=== PATIENT | female | born 1970 | race Hispanic/Latino ===

== ENCOUNTER 2022-06-21 23:07 | Emergency (ER) | payer BC, SELFPAY ==
--- OUTSIDE RECORDS SUMMARY | 2022-06-21 23:12 | XMS REPORT | Continuity of Care Document ---
:1970 Author Organization [facility] t Address [address] [place] [place] [address] Care Team Providers Name Role Phone Marino SANCHEZJeanie Primary Care Physician EV DURÁN Attending Clinician Unavailable RADHA GAVIN Attending Clinician Unavailable Ev Durán MD Attending Clinician VINCENT WOODALL Attending Clinician Unavailable LAB90 Attending Clinician Unavailable AVERY WINTERS Attending Clinician Unavailable Dani JENKINS, Lubna Estrada Attending Clinician Unavailable MANSI MENDIOLA Attending Clinician Unavailable Po[facility] Attending Clinician Unavailable Mansi Mendiola MD Attending Clinician Mando Rothman PTA Attending Clinician Unavailable Kasia Crisostomo MD Attending Clinician KASIA CRISOSTOMO Attending Clinician Unavailable SHERITA RODAS Attending Clinician Unavailable ROLAND ARZOLA Attending Clinician Unavailable ROLAND ARZOLA Admitting Clinician Unavailable Payers Payer Name Policy Type Policy Number Effective Date Expiration Date Sean soto [facility] [id number] 2019 [place] (ERS-[employer] 00:00:00 CAPITATED) Problems Condition Condition Condition Status Onset Resolution Last Treating Co mments Source Name Details Category Date Date Treatment Clinician Date Chronic, Chronic, Disease Active 2020-10 Kelse y continuous continuous 2-17 Se ybold use of use of 00:00: opioids opioids 00 Primary Primary Disease Active [facility] osteoarthr osteoarthr 5-16 Barbara kes itis of itis of 00:00: Medical right knee right knee 00 Ce nter Status Status Disease Active [facility] post right post right 5-16 Barbara kes knee knee 00:00: Medical replacemen replacemen 00 Ce nter t t Anxiety Anxiety Disease Active Mary 5-07 Seybold 00:00: 00 Severe Severe Disease Active Mary obesity obesity 5-07 Seybold 00:00: 00 Prediabete Prediabete Disease Active Fay rogelrose s s 5-07 Seybold 00:00: 00 Elevated Elevated Disease Active Kelse y blood blood 5-07 Seybold pressure pressure 00:00: reading reading 00 Migraine Migraine Disease Active Kelse y without without 5-07 Seybold aura and aura and 00:00: without without 00 status status migrainosu migrainosu s, not s, not intractabl intractabl e e Migraine Migraine Disease Active Kelse y without without 5-07 Seybold status status 00:00: migrainosu migrainosu 00 s, not s, not intractabl intractabl e e Left knee Left knee Disease Active Juan sey pain pain 8-22 Seybold 00:00: 00 Left knee Left knee Disease Active Juan sey pain pain 8-22 Seybold 00:00: 00 Fibromyalg Fibromyalg Disease Active 2015-10 Fay cavazos ia ia 1-11 Seybold 00:00: 00 Left Left Disease Active Mary shoulder shoulder 9-21 Seybol d pain pain 00:00: 00 Right knee Right knee Disease Active Fay elsey pain pain 8-08 Seybold 00:00: 00 Right knee Right knee Disease Active Fay elsey pain pain 8-08 Seybold 00:00: 00 Polyarthra Polyarthra Disease Active Fay cavazos lgia lgia 8-08 Seybold 00:00: 00 Encounter Encounter Disease Active 2014-10 Juan sey for for 1-09 Seybold long-term long-term 00:00: (current) (current) 00 use of use of medication medication s s Encounter Encounter Disease Active Juan hernandezy for for - Seybold long-term long-term 00:00: (current) (current) 00 use of use of other other medication medication s s Chronic Chronic Disease Active Mary insomnia insomnia 01-26 Seybol d 00:00: 00 Headache(7 Headache(7 Disease Active Overview : aMry 84.0) 84.0) 10-28 Formattin Seybold 00:00: g of this 00 note might be different from the original. 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 ICD-10 Facet Facet Disease Active 2009-10 Mary arthropath arthropath 10-09 Se ybold y y 00:00: 00 Myalgia Myalgia Disease Active 2009-10 Overview: Slime ey and and 10-09 Formattin Seybold myositis, myositis, 00:00: g of this unspecifie unspecifie 00 note d d might be different from the original. ICD-10 Thoracic Thoracic Disease Active 2009-10 Kelse y or or 10-09 Seybold lumbosacra lumbosacra 00:00: l neuritis l neuritis 00 or or radiculiti radiculiti s, s, unspecifie unspecifie d d Degenerati Degenerati Disease Active 2009-10 Fay cavazos on of on of 10-09 Seybold lumbar or lumbar or 00:00: lumbosacra lumbosacra 00 l l interverte interverte bral disc bral disc Chronic Chronic Disease Active 2008-10 Mary intractabl intractabl 0 Se ybold e pain e pain 00:00: 00 right right Disease Active Mary Cervical Cervical 04-15 Seybol d Radiculopa Radiculopa 00:00: thy thy 00 Cervical Cervical Disease Active Kelse y Spondylosi Spondylosi 04-15 Se ybold s C5-6 s C5-6 00:00: 00 Right S1 Right S1 Disease Active Kelse y Lumbosacra Lumbosacra 04-15 Se ybold l l 00:00: Radiculopa Radiculopa 00 thy thy Herniated Herniated Disease Active Overview: Mary Lumbar Lumbar 04-15 Formattin Seybold Interverte Interverte 00:00: g of this bral Disc, bral Disc, 00 note multilevel multilevel might be different from the original. L4-5 and L5-S1 Right Right Disease Active Overview: Mary Kidney Kidney 04-15 Formattin Seybold Cyst Cyst 00:00: g of this 00 note might be different from the original. Replaced via IMO Update Acute Acute Disease Active Mary bronchitis bronchitis 3- Se ybold 00:00: 00 Acute Acute Disease Active Mary sinusitis sinusitis 3-03 Seyb old 00:00: 00 Acne Acne Disease Active Overview: Mary Roblerotin Seybold g of this note might be different from the original. past tx: clinda gel, sulfaceta mide 10% lotion BID, amoxicill in 500mg BID No known No known Disease Unive rs active active ity of problems problems [place] [facility] Allergies, Adverse Reactions, Alerts Allergy Allergy Status Severity Reaction(s) Onset Inactive Treating Comm ents Source Name Type Date Date Clinician Hydroxyc Propensi Active Itching Unive rs hloroqui ty to 5-10 ity of ne adverse 00:00: [place] reaction 00 Medical s Branch HYDROXYC DRUG Active ITCHING Univers HLOROQUI INGREDI 5-10 ity of NE 00:00: [place] 00 Medical Branch Duloxeti Propensi Active hallucina [facility] 5-[facility] adverse 00:00: Medical reaction 00 [place] s Pregabal Drug Active Nausea And 2019- [facility] Allergy [facility]omiting 5[facility]10 [facility] 00:[facility] Medical [facility] Center Hydroxyc Drug Active Itching [facility] hloroqui Allergy 5-10 [facility] ne 00:[facility]: Medical 00 Center Kdc:Hydr Propensi Active Itching 2016-0 Kelse y oxychlor ty to 06-02 Seybold oquine+S adverse 00:00: orbitan reaction 00 s Duloxeti Propensi Active Hallucinatio 2009-10 halluci na Univers ne ty to ns 10-09 tions ity of adverse 00:00: [place] reaction 00 [facility] DULOXETI DRUG Active Hallucinates 2009-10 Un eder NE INGREDI 10-09 ity of 00:00: [place] 00 [facility] Duloxeti Drug Active Hallucinatio 2009-10 Ke lsey ne Hcl Allergy ns 10-09 Seybold 00:00: 00 PREGABAL DRUG Active N/V Univers IN INGREDI 10-14 ity of 00:00: [place] 00 [facility] Pregabal Propensi Active Nausea and Along Ke lsey in ty to Vomiting 10-14 with Seybold adverse 00:00: stomach reaction 00 cramps s NO KNOWN Drug Active Univers ALLERGIE Class ity of [facility] [place] Social History Social Habit Start Date Stop Date Quantity Comments Source Exposure to Not sure Mary ventura SARS-CoV-2 (event) History SDOH [facility] Alcohol Binge Medical Ean ter History SDOH [facility] Alcohol Comment Medical C enter History SDOH [facility] Alcohol Std Drinks [facility] Alcohol intake 2019-02-21 2019-02-[address] [facility] 00:[facility] 00:00:00 non-drinker of Medical Ce nter alcohol (finding) Tobacco use and 2019-02-14 2019-02-[address] [facility] Barbara kes exposure 00:00:00 00:00:00 Medical Center History SDOH 2019-02-14 2019-02-[address] [facility] Alcohol Frequency 00:00:00 00:00:00 [facility] Sex Assigned At [address] [facility] Barbara kes 00:00:00 00:00:00 Medical Center Smoking Status Start Date Stop Date Source Unknown if ever smoked [facility] Never smoked tobacco Mary vera Medications Ordered Filled Start Stop Current Ordering Indication Dosage Frequency Signature Comments Components Source Medication Medication Date Date Medication? Clinician (SIG) Name Name HYDROcodone Yes 1{tbl} Q.25D Take 1 K elsey -Acetaminop 3-20 tablet by Sey bold hen 10-325 00:00: mouth MG oral 00 every 6 Tablet hours as needed for pain Carisoprodo Yes 350mg Q.[id number] Take 1 Mary l 350 MG 3-07 [id number] tablet Sey bold oral Tablet 00:00: 3D (350 mg 00 total) by mouth 3 times daily as needed for muscle spasms Temazepam Yes 30mg QD Take 1 Mary 30 MG oral 3-04 capsule Seybol d Capsule 00:00: (30 mg 00 total) by mouth nightly as needed for sleep Amitriptyli Yes TAKE 3 Slime ey ne HCl 25 1-21 TABLETS(75 Seyb old MG oral 00:00: MG) BY Tablet 00 MOUTH AT BEDTIME HYDROcodone 2020-10 Yes 1{tbl} Q6H Take 1 Ke lsey -Acetaminop 2-17 tablet by [employer] Direct hen 10-325 00:00: mouth MG oral 00 every 6 Tablet hours as needed for pain Carisoprodo 2020-10 Yes TAKE 1 Slime ey l 350 MG 1-08 TABLET(350 Seybo ld oral Tablet 00:00: MG) BY 00 MOUTH THREE TIMES DAILY NEEDED FOR MUSCLE SPASMS Tramadol 2020-10 Yes 50mg Q.[id number] Take 1 K elsey HCl 50 MG 0-11 [id number] tablet (50 Seybold oral Tablet 00:00: 3D mg total) 00 by mouth every 8 hours as needed for pain Tramadol 2020-10 Yes 50mg Q8H Take 1 Mary HCl 50 MG 0-11 tablet (50 Seyb old oral Tablet 00:00: mg total) 00 by mouth every 8 hours as needed for pain Temazepam Yes 30mg QD Take 1 Mary 30 MG oral 9-27 capsule Seybol d Capsule 00:00: (30 mg 00 total) by mouth nightly as needed for sleep Temazepam Yes 30mg QD Take 1 Mary 30 MG oral 9-27 capsule Seybol d Capsule 00:00: (30 mg 00 total) by mouth nightly as needed for sleep HYDROcodone Yes 1{tbl} Q6H Take 1 Ke lsey -Acetaminop 9-20 tablet by [email or web address] hen 10-325 00:00: mouth MG oral 00 every 6 Tablet hours as needed for pain Amitriptyli Yes TAKE 3 Slime ey ne HCl 25 9-15 TABLETS(75 Seyb old MG oral 00:00: MG) BY Tablet 00 MOUTH AT BEDTIME Amitriptyli Yes TAKE 3 Slime ey ne HCl 25 9-15 TABLETS(75 Seyb old MG oral 00:00: MG) BY Tablet 00 MOUTH AT BEDTIME Albuterol 2020- Yes [id number] 2{puff} Q.25D Inhale 2 Mary HFA (PROAIR 8-31 puffs into Se ybold HFA) 108 00:00: the lungs (90 Base) 00 every 6 MCG/ACT IN hours as AERS needed for wheezing Albuterol 2020- Yes [id number] 2{puff} Q6H Inhale 2 Mary HFA (PROAIR 8-31 puffs into Se ybold HFA) 108 00:00: the lungs (90 Base) 00 every 6 MCG/ACT IN hours as AERS needed for wheezing Albuterol Yes [id number] 2{puff} Q6H Inhale 2 Mary HFA (PROAIR 8-31 puffs into Se ybold HFA) 108 00:00: the lungs (90 Base) 00 every 6 MCG/ACT IN hours as AERS needed for wheezing Temazepam 2020-0 2020- No TAKE 1 Kelse y 22.5 MG 8-26 06-27 CAPSULE BY Seybo ld oral 00:00: 00:00 MOUTH Capsule 00 :00 EVERY NIGHT AT BEDTIME NEEDED FOR SLEEP Valproic 2020-0 Yes [id number] TAKE 2 Ke lsey Acid 250 MG 7-25 CAPSULES Seyb old oral 00:00: BY MOUTH Capsule 00 EVERY MORNING AND 1 CAPSULE EVERY EVENING Valproic 2020-0 Yes [id number] TAKE 2 Ke lsey Acid 250 MG 7-25 CAPSULES Seyb old oral 00:00: BY MOUTH Capsule 00 EVERY MORNING AND 1 CAPSULE EVERY EVENING Valproic 2020-0 Yes [id number] TAKE 2 Ke lsey Acid 250 MG 7-25 CAPSULES Seyb old oral 00:00: BY MOUTH Capsule 00 EVERY MORNING AND 1 CAPSULE EVERY EVENING Carisoprodo 2020-0 Yes 350mg Q.[id number] Take 1 Mary l (Soma) 7-06 [id number] tablet Sey bold 350 MG oral 00:00: 3D (350 mg Tablet 00 total) by mouth 3 times daily as needed for muscle spasms Benzonatate 0 2020- No 100mg Q.[id number] Take 1 Mary (Tessalon 6-18 09-27 [id number] capsule Seybold Louie) 100 00:00: 00:00 3D (100 mg MG oral 00 :00 total) by Capsule mouth 3 times daily as needed for cough Tramadol 0 Yes TAKE 1 Mary HCl 50 MG 6-07 TABLET(50 Seybo ld oral Tablet 00:00: MG) BY 00 MOUTH EVERY 8 HOURS NEEDED FOR PAIN Atorvastati 0 Yes 40mg Take 1 Slime ey n Calcium 6-04 tablet (40 Seyb old 40 MG oral 00:00: mg total) Tablet 00 by mouth daily Atorvastati 2020-0 Yes 40mg Take 1 Slime ey n Calcium 6-04 tablet (40 Seyb old 40 MG oral 00:00: mg total) Tablet 00 by mouth daily Atorvastati 0 Yes 40mg Take 1 Slime ey n Calcium 6-04 tablet (40 Seyb old 40 MG oral 00:00: mg total) Tablet 00 by mouth daily ESTRADIOL 2020-0 Yes [id number] 2 grams K elsey VAGINAL 6-02 vaginally Seybold (ESTRACE 00:00: qhs for VAGINAL) 00 two weeks 0.1 MG/GM then vaginal one-two Cream times a week as needed ESTRADIOL 2020-0 Yes [id number] 2 grams K elsey VAGINAL 6-02 vaginally Seybold (ESTRACE 00:00: qhs for VAGINAL) 00 two weeks 0.1 MG/GM then vaginal one-two Cream times a week as needed ESTRADIOL 2020-0 Yes [id number] 2 grams K elsey VAGINAL 6-02 vaginally Seybold (ESTRACE 00:00: qhs for VAGINAL) 00 two weeks 0.1 MG/GM then vaginal one-two Cream times a week as needed Ondansetron 2019-0 Yes [id number] 4mg Q.[id number] Take 1 Mary HCl 4 MG 6-26 [id number] tablet (4 Seybold oral Tab 00:00: 3D mg total) 00 by mouth every 8 hours as needed for nausea Ondansetron 2019-0 Yes [id number] 4mg Q8H Take 1 Mary HCl 4 MG 6-26 tablet (4 Seybol d oral Tab 00:00: mg total) 00 by mouth every 8 hours as needed for nausea Ondansetron 2019-0 Yes [id number] 4mg Q8H Take 1 Mary HCl 4 MG 6-26 tablet (4 Seybol d oral Tab 00:00: mg total) 00 by mouth every 8 hours as needed for nausea levocetiriz 2019- 2020- No [id number] 5mg Take 1 Univers ine 5 mg 4-14 05-15 tablet by ity o f tablet 00:00: 04:59 mouth [place] 00 :00 every Medical evening Branch for 30 days. levocetiriz 2019-0 2020- No [id number] 5mg Take 1 Univers ine 5 mg 4-14 05-15 tablet by ity o f tablet 00:00: 04:59 mouth [place] 00 :00 every Medical evening Branch for 30 days. levocetiriz 2019-0 2020- No [id number] 5mg Take 1 Univers ine 5 mg 4-14 05-15 tablet by ity o f tablet 00:00: 04:59 mouth [place] 00 :00 every Medical evening Branch for 30 days. amoxicillin 2019-0 2020- No [id number] 500mg Take 1 Univers 500 mg 4-14 04-22 capsule by ity of capsule 00:00: 04:59 mouth 3 [place] 00 :00 (three) Medical times Branch daily for 7 days. amoxicillin 2019-0 2020- No [id number] 500mg Take 1 Univers 500 mg 4-14 04-22 capsule by ity of capsule 00:00: 04:59 mouth 3 [place] 00 :00 (three) Medical times Branch daily for 7 days. amoxicillin 2019-0 2020- No [id number] 500mg Take 1 Univers 500 mg 4-14 04-22 capsule by ity of capsule 00:00: 04:59 mouth 3 [place] 00 :00 (three) Medical times Branch daily for 7 days. amitriptyli Yes 75mg QD Take [address] [facility] (ELAVIL) 5-17 by mouth Luke s 25 MG 17:16: nightly. Medical tablet 31 Center cyclobenzap Yes 10mg Take [address] [facility] rine 5-17 by mouth 3 [facility] (FLEXERIL) 17:16: (three) Medi jocelin 10 MG 31 times Center tablet daily as needed for Muscle spasms. montelukast 0 Yes 10mg QD Take [address] [address] (SINGULAIR) 5-17 by mouth Luke s 10 mg 17:16: nightly. Medical tablet 31 Center temazepam 0 Yes 15mg Take [address] (RESTORIL) 5-17 by mouth [facility] 15 mg 17:16: every Medical capsule 31 night as Center needed for Sleep. vortioxetin 0 Yes 10mg QD Take [address] [facility] e 5-17 by mouth [facility] (TRINTELLIX 17:16: daily. Medi jocelin ) 10 mg Tab 31 Center amitriptyli 0 Yes 75mg QD Take [address] [facility] ne (ELAVIL) 5-17 by mouth Luke s 25 MG 17:16: nightly. Medical tablet 31 Center cyclobenzap Yes 10mg Take [address] [facility] rine 5-17 by mouth 3 [facility] (FLEXERIL) 17:16: (three) Medi jocelin 10 MG 31 times Center tablet daily as needed for Muscle spasms. montelukast 0 Yes 10mg QD Take [address] (SINGULAIR) 5-17 by mouth Luke s 10 mg 17:16: nightly. Medical tablet 31 Center temazepam 0 Yes 15mg Take [address] (RESTORIL) 5-17 by mouth [facility] 15 mg 17:16: every Medical capsule 31 night as Center needed for Sleep. vortioxetin 0 Yes 10mg QD Take [address] [facility] [facility] e 5-17 by mouth [facility]ukes (TRINTELLIX 17:16: daily. Medi jocelin ) 10 mg Tab 31 Center Montelukast 2018-0 Yes [id number] 10mg Take 1 Mary (SINGULAIR) 5-07 (one) Seybold 10 MG oral 00:00: tablet by Tab tablet 00 mouth nightly Montelukast 2019-0 Yes [id number] 10mg Take 1 Mary (SINGULAIR) 5-07 (one) Seybold 10 MG oral 00:00: tablet by Tab tablet 00 mouth nightly Montelukast 2018-0 Yes [id number] 10mg Take 1 Mary (SINGULAIR) 5-07 (one) Seybold 10 MG oral 00:00: tablet by Tab tablet 00 mouth nightly Immunizations Ordered Immunization Filled Immunization Date Status Commen ts Source Name Name Influenza Virus 2019-09-15 Completed Mary Se ybold Vaccine, age 6 months 00:00:00 and up Influenza Virus 2019-09-15 Completed Mary Se ybold Vaccine, age 6 months 00:00:00 and up Influenza Virus 2019-09-15 Completed Mary Se ybold Vaccine, age 6 months 00:00:00 and up Influenza Virus 2016-08-18 Completed Mary Se ybold Vaccine, age 6 months 00:00:00 and up Influenza Virus 2016-08-18 Completed Mary Se ybold Vaccine, age 6 months 00:00:00 and up Influenza Virus 2016-08-18 Completed Mary Se ybold Vaccine, age 6 months 00:00:00 and up Influenza Virus 2014-09-16 Completed Mary Se ybold Vaccine, age 6 months 00:00:00 and up Influenza Virus 2014-09-16 Completed Mary Se ybold Vaccine, age 6 months 00:00:00 and up Influenza Virus 2014-09-16 Completed Mary Se ybold Vaccine, age 6 months 00:00:00 and up Pneumococcal Vaccine, 2014-04-15 Completed Juan sey Seybold Polysaccharide 00:00:00 Tdap- (Boostrix, 2014-04-15 Completed Mary S eybold Adacel) 00:00:00 Pneumococcal Vaccine, 2014-04-15 Completed Juan sey Seybold Polysaccharide 00:00:00 Tdap- (Boostrix, 2014-04-15 Completed Mary S eybold Adacel) 00:00:00 Pneumococcal Vaccine, 2014-04-15 Completed Juan sey Seybold Polysaccharide 00:00:00 Tdap- (Boostrix, 2014-04-15 Completed Mary S eybold Adacel) 00:00:00 PPD-Protein Derivative 2008-11-13 Completed Ke lsey Seybold (Purified)- Tuberculin 00:00:00 PPD-Protein Derivative 2008-11-13 Completed Ke lsey Seybold (Purified)- Tuberculin 00:00:00 PPD-Protein Derivative 2008-11-13 Completed Ke lsey Seybold (Purified)- Tuberculin 00:00:00 Vital Signs Vital Name Observation Time Observation Value Comments Source Systolic blood 2022-01-20 16:27:00 126 mm[Hg] Mary Seybold pressure Diastolic blood 2022-01-20 16:27:00 80 mm[Hg] Kelse y Seybold pressure Heart rate 2022-01-20 16:27:00 80 /min Mary S eybold Respiratory rate 2022-01-20 16:27:00 16 /min Slime ey Seybold Body weight 2022-01-20 16:27:00 88.451 kg Mary S eybold BMI 2022-01-20 16:27:00 34.54 kg/m2 Mary S eybold Systolic blood 2021-10-17 16:28:00 122 mm[Hg] Mary Seybold pressure Diastolic blood 2021-10-17 16:28:00 80 mm[Hg] Kelse y Seybold pressure Heart rate 2021-10-17 16:28:00 80 /min Mary S eybold Respiratory rate 2021-10-17 16:28:00 16 /min Slime ey Seybold Body weight 2021-10-17 16:28:00 90.719 kg Mary S eybold BMI 2021-10-17 16:28:00 35.43 kg/m2 Mary S eybold Systolic blood 2021-07-04 19:19:00 140 mm[Hg] Mary Seybold pressure Diastolic blood 2021-07-04 19:19:00 80 mm[Hg] Kelse y Seybold pressure Heart rate 2021-07-04 19:19:00 88 /min Mary S eybold Body height 2021-07-04 19:19:00 160 cm Mary S eybold Body weight 2021-07-04 19:19:00 87.998 kg Mary S eybold BMI 2021-07-04 19:19:00 34.37 kg/m2 Mary S eybold Systolic blood 2020-01-20 19:06:00 140 mm[Hg] Univer sity of pressure [facility] [place] [facility] Diastolic blood 2020-01-20 19:06:00 94 mm[Hg] Unive rsity of pressure [facility] [place] [facility] Heart rate 2020-01-20 19:06:00 81 /min [facility] Body temperature 2020-01-20 19:06:00 37.17 Jannie [facility] Respiratory rate 2020-01-20 19:06:00 18 /min [facility] Body height 2020-01-20 19:06:00 160 cm [facility] Body weight 2020-01-20 19:06:00 84.823 kg [facility] BMI 2020-01-20 19:06:00 33.13 kg/m2 [facility] Oxygen saturation in 2020-01-20 19:06:00 99 /[facility] by [facility] Pulse oximetry [place] Procedures Procedure Date / Time Performed Performing Clinician Sourc e POCT GRP A STREP 2020-01-20 19:24:00 Amanda Blunt [facility] (MOLECULAR) [facility] Plan of Care Planned Activity Planned Date Details Comments Source Future Scheduled 2024-04-15 DTAP/TDAP/TD VACCINES [facility] 00:00:00 (2 - Td or Tdap) Medical Ean ter [code = DTAP/TDAP/TD VACCINES (2 - Td or Tdap)] Future Scheduled 2022-02-[address] [facility] Test 00:00:00 (procedure) [code = [facility] [id number]] Future Scheduled 2021-06-[address] [facility] Test 00:00:00 (#1) [code = [facility] INFLUENZA VACCINE (#1)] Future Scheduled 2020-10-[address] [facility] Test 00:00:00 (12+) [code = [facility] DEPRESSION SCREENING (12+)] Future Scheduled 2020 SHINGLES VACCINES ([address] [facility] Test 00:00:00 of 2) [code = Medical Center SHINGLES VACCINES (1 of 2)] Future Scheduled [address] [facility] 00:[facility]:00 malignant neoplasm of Medica l Center cervix (procedure) [code = 349180258] Future Scheduled 1988 HEPATITIS C SCRE[facility]ING [facility] Test 00:00:00 [code = HEPATITIS C Medical Center SCREENING] Future Scheduled 1982 COVID-19 VACCINE (1) [facility] Test 00:00:00 [code = COVID-[address] VACCINE (1)] Future Scheduled [address] [facility] Test 00:00:00 malignant neoplasm of [facility] breast (procedure) [code = 337898108] Future Scheduled [address] [facility] Test 00:00:00 malignant neoplasm of [facility] colon (procedure) [code = 370450559] Encounters Start End Encounter Admission Attending Care Care Encounter Source Date/Time Date/Time Type Type Clinicians Facility Department ID 2022-07-13 2022-07-13 Outpatient MARY DURÁN [id number] Mary 16:15:00 16:15:00 EV Seybol d 2022-06-20 2022-06-20 Outpatient MARY DURNÁ [id number] Mary 00:00:00 00:00:00 EV Seybol d 2022-06-20 2022-06-20 Outpatient MARY DURÁN [id number] Mary 00:00:00 00:00:00 EV Seybol d 2022-06-19 2022-06-19 Outpatient MARY DURÁN [id number] Mary 00:00:00 00:00:00 EV Seybol d 2022-06-15 2022-06-15 Outpatient MARY DURÁN [id number] Mary 00:00:00 00:00:00 EV Seybol d 2022-05-17 2022-05-17 Outpatient RADHA GAVIN [id number] Mary 00:00:00 00:00:00 Seybol d 2022-05-12 2022-05-12 Outpatient MARY DURÁN [id number] Mary 00:00:00 00:00:00 EV Seybol d 2022-04-21 2022-04-21 Outpatient MARY DURÁN [id number] Mary 10:00:00 10:00:00 EV Seybol d 2022-04-21 2022-04-21 Outpatient MARY DURÁN [id number] Mary 10:00:00 10:00:00 EV Seybol d 2022-04-21 2022-04-21 Outpatient MARY DURÁN [id number] Mary 00:00:00 00:00:00 EV Seybol d 2022 2022 Outpatient MARY DURÁN [id number] Mary 00:00:00 00:00:00 EV Seybol d 2022-01-20 2022-01-20 Office Lenny LISET [id number] Mary 11:45:00 12:00:00 [id number] 2022-01-16 2022-01-16 Outpatient MARY DURÁN [id number] Mary 08:45:00 08:45:00 EV Seybol d 2021-12-22 2021-12-22 Outpatient MARY DURÁN [id number] Mary 00:00:00 00:00:00 EV Seybol d 2021-12-20 2021-12-20 Outpatient MARY DURÁN [id number] Mary 00:00:00 00:00:00 EV Seybol d 2021-12-12 2021-12-12 Outpatient MARY DURÁN [id number] Mary 00:00:00 00:00:00 EV Seybol d 2021-12-09 2021-12-09 Outpatient MARY DURÁN [id number] Mary 00:00:00 00:00:00 EV Seybol d 2021-11-23 2021-11-23 Outpatient MARY DURÁN [id number] Mary 00:00:00 00:00:00 EV Seybol d 2021-10-28 2021-10-28 Outpatient MARY DURÁN [id number] Mary 00:00:00 00:00:00 EV Seybol d 2021-10-24 2021-10-24 Outpatient MARY DURÁN [id number] Mary 00:00:00 00:00:00 EV Seybol d 2021-10-17 2021-10-17 Office Lenny, LISET [id number] Mary 10:15:00 10:30:00 Visit [facility] [id number] Se ybold [id number] 2021-10-17 2021-10-17 Outpatient MARY DURÁN [id number] Mary 00:00:00 00:00:00 EV Seybol d 2021-09-23 2021-09-23 Outpatient MARY DURÁN [id number] Mary 00:00:00 00:00:00 EV Seybol d 2021-09-23 2021-09-23 Outpatient MARY DURÁN [id number] Mary 00:00:00 00:00:00 EV Seybol d 2021-08-25 2021-08-25 Outpatient MARY DURÁN [id number] Mary 00:00:00 00:00:00 EV Seybol d 2021-07-20 2021-07-20 Outpatient MARY DURÁN [id number] Mary 00:00:00 00:00:00 EV Seybol d 2021-07-18 2021-07-18 Outpatient MAYR DURÁN [id number] Mary 00:00:00 00:00:00 EV Seybol d 2021-07-06 2021-07-06 Outpatient MARY WOODALL [id number] Mary 08:15:00 08:15:00 VINCENT Seybol d 2021-07-04 2021-07-04 Office Lenny, MARGARITA SILVA [id number] Mary 13:53:34 14:08:34 Visit [facility] [id number] Seybold DIAGNOSTI [id number] [facility] [id number] 2021-06-27 2021-06-27 Outpatient MARY DURÁN [id number] Mary 00:00:00 00:00:00 EV Seybol d 2021-05-26 2021-05-26 Outpatient MARY DURÁN [id number] Mary 00:00:00 00:00:00 EV Seybol d 2021-04-20 2021-04-20 Outpatient MARY WATTS [id number] Mary 10:30:00 10:30:00 Seybol d 2021-04-19 2021-04-19 Outpatient MARY WATTS [id number] Mary 10:00:00 10:00:00 Seybol d 2021-04-19 2021-04-19 Outpatient MARY WATTS [id number] Mary 09:00:00 09:00:00 Seybol d 2021-03-23 2021-03-23 Outpatient LAB90 MARY WATTS [id number] Mary 13:40:00 13:40:00 Seybol d 2021-03-09 2021-03-09 Outpatient MARY WINTERS [id number] Mary 13:45:00 13:45:00 AVERY Seyb old 2020-05-26 2020-05-26 Outpatient [facility] 00:00:00 00:00:00 [id number] 2020-01-21 2020-01-21 Telephone HELENA Louise [id number] 00:00:00 00:00:00 Lubna LEE [id number] [facility] [id number] 2020-01-21 2020-01-21 Telephone HELENA Louise [id number] [facility] 00:00:00 00:00:00 Lubna LEE [id number] [facility] [id number] Abdulkadir as [phone] [address] 2020-01-20 2020-01-20 Outpatient R [facility] [id number] Univers 15:20:00 15:20:00 [id number] ity [facility] 2020-01-20 2020-01-20 Outpatient R MITA [facility] [id number] Univers 15:20:00 15:20:00 MANSI it y [facility] 2020-01-20 2020-01-20 Urgent Pob1, Acute Care Clinic [facility] [id number] Univers 13:20:24 14:43:25 Care Mansi Mendiola [facility] 350.1 .13.10 [facility] [place] [id number] Abdulkadir as Professio [phone] Ca dical nal [address] [place] [facility] 2019-05-06 2020-01-13 Ancillary Mando Rothman [facility] [id number] Univers 09:26:51 11:45:13 Visit Kasia Crisostomo [place] [id number] [place] [id number] Ca dical nal 179 [facility] 2019-05-06 2019-05-06 Outpatient James CRISOSTOMO [facility] [id number] Univers 09:30:00 11:44:30 KASIA [facility] 2019-03-14 2019-03-14 Outpatient James RODAS [facility] [id number] [facility] 09:30:00 10:22:26 [facility] 2019-02-13 2019-02-13 Outpatient James RODAS [facility] [id number] Univers 13:00:00 14:00:55 [facility] Results Test Description Test Time Test Comments Results Result Comments Source POCT GRP A STREP (MOLECULAR) 2020-01-20 19:24:00 Test Item Value Reference Range Interpretation Comme nts POCT GP A STREP (test code = 17835-0) Negative Negative - Negat edgar Lab Interpretation (test code = 57026-6) [id number] 08:51:00Surgical Pathology Report Case: [id number] Authorizing Provider: Roland Arzola, Collected: 02/20/2019 123Aaron GUNTER Ordering Location: [facility] Received: 02/20/2019 1451 SERVICES Pathologist: Luz Maria Nielson MD Specimen: Condyle,Right Knee A. CONDYLE, RIGHT KNEE, ARTHROPLASTY: - OSTEOARTHRITIS AND CHRONIC SYNOVITIS Signing Pathologist Direct Phone Line: [phone] by Luz Maria Nielson MD on 02/25/2019 at 8:51 [id number] of right kneeReceived in formalin labeled "right knee condyle" is a 9.5 x 7 x 2.2 cm vaughan-white bony tissue fragment with 3 x 1.5 x 0.5 cm attached soft tissue. A tibial plateau patella and femur epicondyles are identified. The external surface of the bone is vaughan ivory and shiny with areas of eburnation. Osteophytes areidentified. Cellophane Worker sections are submitted as follows: A1-A2, bone; A3, attached soft tissue.TH/plPerformed.BASIC METABOLIC [id number] 07:02:00 Test Item Value Reference Range Interpretation Comments SODIUM (BEAKER) 136 meq/L 136-145 (test code = 381) POTASSIUM (BEAKER) 3.8 meq/L 3.5-5.1 (test code = 379) CHLORIDE (BEAKER) 108 meq/L 98-107 H (test code = 382) CO2 (BEAKER) (test 24 meq/L 22-29 code = 355) BLOOD UREA NITROGEN 10 mg/dL 7-21 (BEAKER) (test code = 354) CREATININE (BEAKER) 0.72 mg/dL 0.57-1.25 (test code = 358) GLUCOSE RANDOM 112 mg/dL 70-105 H (BEAKER) (test code = 652) CALCIUM (BEAKER) 8.8 mg/dL 8.4-10.2 (test code = 697) EGFR (BEAKER) (test 86 mL/min/1.73 ESTIMA ROYER GFR IS code = 1092) sq m NOT ACCURATE CREATININE CLEARANCE IN PREDICTING GLOMERULAR FILTRATION RATE . ESTIMATED GFR I S NOT APPLICABLE FOR DIALYSIS PATIEN TS. HEMOGLOBIN AND [id number] 06:16:00 Test Item Value Reference Range Interpretation Comments HEMOGLOBIN (BEAKER) (test code = 10.4 GM/DL 11.2-15.7 L 410) HEMATOCRIT (BEAKER) (test code = 33.2 % 34.1-44.9 L 411)
[2022-06-22] MEDS ORDERED: METOPROLOL TARTRATE 5 MG/5 ML INJ IV ONE (00:23)
[2022-06-22 00:26] LABS: Absolute Lymphocytes (CBC) 2.8 K/uL (0.7-4.9); Hematocrit 37.3 % (36.0-45.0); Lymphocytes % 33.5 % (15.3-44.8); MCV 90.8 fL (80-100); RBC Red Blood Cell Count 4.11 M/uL (3.86-4.86)
[2022-06-22 00:37] LABS: Potassium 3.2 mmol/L (3.5-5.1); Troponin High Sensitivity 5.2 pg/mL (<58.9)
[2022-06-22] MEDS ORDERED: ENOXAPARIN 80 MG/0.8 ML SQ ONE (00:59)
[2022-06-22] MEDS ORDERED: POTASSIUM 25 MEQ EFFERV TAB ONE (00:59)
--- NOTE | 2022-06-22 02:31 | EDPHYS ---
Physician Documentation [facility] Name: Jumana Powers Age: 52 yrs Sex: Female : 1970 Arrival Date: 06/21/2022 Time: 23:10 Bed 7 Private MD: ED Physician Brian Stevens HPI: 06/22 04:22 This 52 yrs old Female presents to ER via Ambulatory with complaints of Pain kdr All Over, Fast Heart Rate. 04:22 She feels that her heart has been racing intermittently since then. She has vomited x1. kdr In addition she has been feeling anxious and has had mild shortness of breath. She has had similar symptoms in the past. She has not had any specific diagnosis rendered patient reports that she has been feeling jittery since about. Onset: The symptoms/episode began/occurred suddenly, today. Severity of symptoms: At their worst the symptoms were mild moderate just prior to arrival, in the emergency department the symptoms are unchanged. The patient has not experienced similar symptoms in the past. The patient has not recently seen a physician. 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 N/A - Pre-menarche kb3 Historical: - Allergies: 23:28 Cymbalta; kb3 23:28 Lyrica; kb3 23:28 Savella; kb3 - Home Meds: 23:28 amitriptyline 25 mg Oral tab 1 tab once daily [Active]; hydrocodone-acetaminophen kb3 10-325 mg Oral tab 1 tab every 4 hours [Active]; Soma 350 mg Oral tab [Active]; atorvastatin 40 mg oral tab 1 tab once daily [Active]; temazepam 30 mg Oral cap [Active]; albuterol sulfate 90 mcg/actuation Inhl aepb 1 puff every 4 hours [Active]; - PMHx: 23:28 Fibromyalgia; High cholesterol; joint aches/pain; Insomnia; kb3 - Immunization history:: Adult Immunizations up to date, Client reports having NOT received the Covid vaccine. Last tetanus immunization: unknown. - Social history:: Smoking status: Patient denies any tobacco usage or history of. ROS: 06/22 04:22 Constitutional: Negative for fever, chills, and weight loss, Eyes: Negative for injury, kdr pain, redness, and discharge, Neck: Negative for injury, pain, and swelling, Respiratory: Negative for shortness of breath, cough, wheezing, and pleuritic chest pain, Abdomen/GI: Negative for abdominal pain, nausea, vomiting, diarrhea, and constipation, Back: Negative for injury and pain, : Negative for injury, bleeding, discharge, and swelling, MS/Extremity: Negative for injury and deformity, Skin: Negative for injury, rash, and discoloration, Neuro: Negative for headache, weakness, numbness, tingling, and seizure activity. Psych: Negative for depression, anxiety, suicide ideation, homicidal ideation, and hallucinations, Allergy/Immunology: Negative for hives, rash, and allergies, Endocrine: Negative for neck swelling, polydipsia, polyuria, polyphagia, and marked weight changes, Hematologic/Lymphatic: Negative for swollen nodes, abnormal bleeding, and unusual bruising. Cardiovascular: Positive for chest pain, palpitations, Negative for edema, orthopnea, paroxysmal nocturnal dyspnea, acute changes. Exam: 04:22 Constitutional: This is a well developed, well nourished patient who is awake, alert, kdr and in no acute distress. Head/Face: Normocephalic, atraumatic. Eyes: Pupils equal round and reactive to light, extra-ocular motions intact. Lids and lashes normal. Conjunctiva and sclera are non-icteric and not injected. Cornea within normal limits. Periorbital areas with no swelling, redness, or edema. Neck: Trachea midline, no thyromegaly or masses palpated, and no cervical lymphadenopathy. Supple, full range of motion without nuchal rigidity, or vertebral point tenderness. No Meningismus. Chest/axilla: Normal chest wall appearance and motion. Nontender with no deformity. No lesions are appreciated. Cardiovascular: Regular rate and rhythm with a normal S1 and S2. No gallops, murmurs, or rubs. Normal PMI, no JVD. No pulse deficits. Respiratory: Lungs have equal breath sounds bilaterally, clear to auscultation and percussion. No rales, rhonchi or wheezes noted. No increased work of breathing, no retractions or nasal flaring. Abdomen/GI: Soft, non-tender, with normal bowel sounds. No distension or tympany. No guarding or rebound. No evidence of tenderness throughout. Back: No spinal tenderness. No costovertebral tenderness. Full range of motion. Skin: Warm, dry with normal turgor. Normal color with no rashes, no lesions, and no evidence of cellulitis. MS/ Extremity: Pulses equal, no cyanosis. Neurovascular intact. Full, normal range of motion. Neuro: Awake and alert, GCS 15, oriented to person, place, time, and situation. Cranial nerves II-XII grossly intact. Motor strength 5/5 in all extremities. Sensory grossly intact. Cerebellar exam normal. Normal gait. Psych: Awake, alert, with orientation to person, place and time. Behavior, mood, and affect are within normal limits. Vital Signs: 06/21 23:25 BP 181 / 100; Pulse 117; Resp 20; Temp 98.8; Pulse Ox 100% ; Weight 89.81 kg; Height 5 kb3 ft. 3 in. (160.02 cm); Pain 0/10; 06/22 00:08 BP 171 / 95; Pulse 94; Resp 19 S; Pulse Ox 100% on R/A; ha1 00:08 Pulse 105; ha1 00:41 BP 163 / 87; Pulse 70; Resp 18; Pulse Ox 100% on R/A; ha1 00:52 BP 156 / 92; Pulse 73; Pulse Ox 98% on R/A; ha1 01:04 BP 154 / 91; Pulse 62; ha1 02:00 BP 165 / 102; Pulse 80; Resp 17 S; Pulse Ox 100% on R/A; ha1 06/21 23:25 Body Mass Index 35.07 (89.81 kg, 160.02 cm) kb3 MDM: 02:30 Patient medically screened. kdr 04:22 Data reviewed: vital signs, nurses notes, lab test result(s), radiologic studies. kdr Counseling: I had a detailed discussion with the patient and/or guardian regarding: the historical points, exam findings, and any diagnostic results supporting the discharge/admit diagnosis, lab results, radiology results, the need for outpatient follow up. 06/21 23:43 Order name: Basic Metabolic Panel; Complete Time: 00:38 kdr 06/21 23:43 Order name: CBC with Diff; Complete Time: 00:38 kdr 06/21 23:43 Order name: Troponin HS; Complete Time: 00:38 kdr 06/21 23:43 Order name: XRAY Chest (1 view) kdr 06/21 23:50 Order name: D-Dimer; Complete Time: 00:38 kdr 06/21 23:50 Order name: US Extremity Venous W Compression [place] kdr 06/21 23:43 Order name: EKG; Complete Time: 23:43 kdr 06/21 23:43 Order name: Cardiac monitoring; Complete Time: 00:15 kdr 06/21 23:43 Order name: EKG - Nurse/Tech; Complete Time: 00:16 kdr 06/21 23:43 Order name: IV Saline Lock; Complete Time: 00:15 kdr 06/22 00:37 Order name: CT Chest For PE Angio kdr 06/21 23:43 Order name: Labs collected and sent; Complete Time: 00:15 kdr 06/21 23:43 Order name: O2 Per Protocol; Complete Time: 00:16 kdr 06/21 23:43 Order name: O2 Sat Monitoring; Complete Time: 00:16 kdr Administered Medications: 00:37 Drug: Lopressor (metoprolol) 5 mg Route: IVP; Site: right antecubital; ha1 00:44 Drug: Lopressor (metoprolol) 5 mg Route: IVP; Site: right antecubital; ha1 01:01 Drug: Lovenox (enoxaparin) 1 mg/kg Route: Sub-Q; Site: right lower abdomen; ha1 01:30 Follow up: Response: No adverse reaction ha1 01:01 Drug: Potassium Effervescent Tablet 50 mEq Route: PO; ha1 01:30 Follow up: Response: No adverse reaction ha1 01:02 Drug: Lopressor (metoprolol) 5 mg Route: IVP; Site: right antecubital; ha1 01:30 Follow up: Response: No adverse reaction ha1 Disposition Summary: 06/22/22 02:30 Discharge Ordered Location: Home kdr Problem: new kdr Symptoms: are resolved kdr Condition: Stable kdr Diagnosis - Hypertensive heart disease without heart failure kdr - Palpitations kdr Followup: kdr - With: Private Physician - When: 2 - 3 days - Reason: If symptoms return, Further diagnostic work-up, Recheck today's complaints, Continuance of care, Re-evaluation by your physician Discharge Instructions: - Discharge Summary Sheet kdr - Hypertension, Adult, [id number] kdr - Palpitations, Qqje-[id number] kdr Forms: - Medication Reconciliation Form kdr - Thank You Letter kdr Signatures: Dispatcher [employer] Brian Whelan MD MD kdr Patricia Alcantar RN RN ha1 Tanisha Griffith RN RN kb3 Corrections: (The following items were deleted from the chart) 06/21 23:33 23:28 Home Meds: Flexeril 5 mg Oral tab 1 tab for as needed; kb3 kb3
--- NOTE | 2022-06-22 02:31 | ER ---
Nurse's Notes [facility] Name: Jumana Powers Age: 52 yrs Sex: Female : 1970 Arrival Date: 06/21/2022 Time: 23:10 Bed 7 Private MD: Diagnosis: Hypertensive heart disease without heart failure;Palpitations Presentation: 06/21 23:25 Chief complaint: Patient states: Pt reports feeling jittery with heart racing since kb3 around noon today. Denies CP, vomiting x1 episode, feeling anxious, mild SOB. Coronavirus screen: Vaccine status: Patient reports being unvaccinated. Client denies travel out of the [place] in the last 14 days. Ebola Screen: Patient negative for fever greater than or equal to 101.5 degrees Fahrenheit, and additional compatible Ebola Virus Disease symptoms Patient denies exposure to infectious person. Patient denies travel to an Ebola-affected area in the 21 days before illness onset. No symptoms or risks identified at this time. Initial Sepsis Screen: Does the patient meet any 2 criteria? No. Patient's initial sepsis screen is negative. Does the patient have a suspected source of infection? No. Patient's initial sepsis screen is negative. Risk Assessment: Do you want to hurt yourself or someone else? Patient reports no desire to harm self or others. Onset of symptoms was June 21, 2022 at 12:00. 23:25 Method Of Arrival: Ambulatory kb3 23:25 Acuity: KAMERON 2 bb Triage Assessment: 23:28 General: Appears in no apparent distress. Behavior is calm, cooperative. Pain: Denies kb3 pain. 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 - Pre-menarche kb3 Historical: - Allergies: 23:28 Cymbalta; kb3 23:28 Lyrica; kb3 23:28 Savella; kb3 - Home Meds: 23:28 amitriptyline 25 mg Oral tab 1 tab once daily [Active]; hydrocodone-acetaminophen kb3 10-325 mg Oral tab 1 tab every 4 hours [Active]; Soma 350 mg Oral tab [Active]; atorvastatin 40 mg oral tab 1 tab once daily [Active]; temazepam 30 mg Oral cap [Active]; albuterol sulfate 90 mcg/actuation Inhl aepb 1 puff every 4 hours [Active]; - PMHx: 23:28 Fibromyalgia; High cholesterol; joint aches/pain; Insomnia; kb3 - Immunization history:: Adult Immunizations up to date, Client reports having NOT received the Covid vaccine. Last tetanus immunization: unknown. - Social history:: Smoking status: Patient denies any tobacco usage or history of. Screenin/15 02:35 Abuse screen: Denies threats or abuse. Denies injuries from another. ha1 02:35 Nutritional screening: No deficits noted. Tuberculosis screening:. Fall Risk None ha1 identified. Assessment: 06/21 23:45 General: Appears in no apparent distress. Behavior is calm, cooperative. Pain: ha1 Complains of pain in chest palpitations. Neuro: Level of Consciousness is awake, alert, Oriented to person, place, time, situation. Cardiovascular: Patient's skin is warm and dry. Rhythm is sinus tachycardia. Respiratory: Airway is patent Trachea midline Respiratory effort is even, unlabored, Respiratory pattern is regular, symmetrical. 06/22 01:05 Reassessment: Patient and/or family updated on plan of care and expected duration. Pain ha1 level reassessed. Patient is alert, oriented x 3, equal unlabored respirations, skin warm/dry/pink. going to radilogy. 02:00 Reassessment: Patient and/or family updated on plan of care and expected duration. Pain ha1 level reassessed. Patient is alert, oriented x 3, equal unlabored respirations, skin warm/dry/pink. 02:48 Reassessment: Patient and/or family updated on plan of care and expected duration. Pain ha1 level reassessed. Patient is alert, oriented x 3, equal unlabored respirations, skin warm/dry/pink. being discharged. Vital Signs: 06/21 23:25 BP 181 / 100; Pulse 117; Resp 20; Temp 98.8; Pulse Ox 100% ; Weight 89.81 kg; Height 5 kb3 ft. 3 in. (160.02 cm); Pain 0/10; 06/22 00:08 BP 171 / 95; Pulse 94; Resp 19 S; Pulse Ox 100% on R/A; ha1 00:08 Pulse 105; ha1 00:41 BP 163 / 87; Pulse 70; Resp 18; Pulse Ox 100% on R/A; ha1 00:52 BP 156 / 92; Pulse 73; Pulse Ox 98% on R/A; ha1 01:04 BP 154 / 91; Pulse 62; ha1 02:00 BP 165 / 102; Pulse 80; Resp 17 S; Pulse Ox 100% on R/A; ha1 06/21 23:25 Body Mass Index 35.07 (89.81 kg, 160.02 cm) kb3 ED Course: 06/21 23:10 Patient arrived in ED. ja2 23:11 Brian Stevens MD is Attending Physician. kdr 23:28 Triage completed. kb3 23:28 Arm band placed on right wrist. kb3 23:35 Patient has correct armband on for positive identification. ha1 23:41 Patricia Alcantar, GREGORY is Primary Nurse. ha1 06/22 00:03 Inserted saline lock: 20 gauge in right antecubital area, using aseptic technique. ha1 Blood collected. 00:15 Basic Metabolic Panel Sent. ha1 00:16 CBC with Diff Sent. ha1 00:16 Troponin HS Sent. ha1 00:30 US Extremity Venous W Compression [place] In Process Unspecified. EDMS 00:43 XRAY Chest (1 view) In Process Unspecified. EDMS 01:34 CT Chest For PE Angio In Process Unspecified. EDMS 02:49 No provider procedures requiring assistance completed. IV discontinued, intact, ha1 bleeding controlled, No redness/swelling at site. Pressure dressing applied. Administered Medications: 00:37 Drug: Lopressor (metoprolol) 5 mg Route: IVP; Site: right antecubital; ha1 00:44 Drug: Lopressor (metoprolol) 5 mg Route: IVP; Site: right antecubital; ha1 01:01 Drug: Lovenox (enoxaparin) 1 mg/kg Route: Sub-Q; Site: right lower abdomen; ha1 01:30 Follow up: Response: No adverse reaction ha1 01:01 Drug: Potassium Effervescent Tablet 50 mEq Route: PO; ha1 01:30 Follow up: Response: No adverse reaction ha1 01:02 Drug: Lopressor (metoprolol) 5 mg Route: IVP; Site: right antecubital; ha1 01:30 Follow up: Response: No adverse reaction ha1 Medication: 02:51 VIS not applicable for this client. ha1 Outcome: 02:30 Discharge ordered by . kdr 02:49 Discharged to home ambulatory, with family. ha1 02:49 Condition: stable 02:49 Discharge instructions given to patient, family, Instructed on discharge instructions, follow up and referral plans. Demonstrated understanding of instructions, follow-up care. 03:00 Patient left the ED. ll3 Signatures: Dispatcher [employer] EDMS Brian Stevens MD MD kdr Ballard, Brenda RN RN bb Renee Chawla Lynsea, RN RN ll3 Patricia Alcantar RN RN ha1 Tanisha Griffith RN RN kb3 Corrections: (The following items were deleted from the chart) 06/21 23:33 23:28 Home Meds: Flexeril 5 mg Oral tab 1 tab for as needed; kb3 kb3 23:40 23:25 Acuity: KAMERON 3 kb3 bb
--- NOTE | 2022-06-22 09:04 | RAD REPORT ---
EXAM DESCRIPTION: RAD - Chest Single View - 06/22/2022 12:42 am CLINICAL HISTORY: PALPITATIONS COMPARISON: None FINDINGS: No focal lung consolidation. No pleural effusion. No pneumothorax. Cardiomediastinal silhouette is within normal limits. No acute osseous abnormality. IMPRESSION: No acute cardiopulmonary disease. Electronically signed by: James Herrrea DO 06/22/2022 12:56 AM CDT Due to temporary technical issues with the PACS/Fluency reporting system, reports are being signed by the in house radiologists without review as a courtesy to insure prompt reporting. The interpreting radiologist is fully responsible for the content of the report.
--- NOTE | 2022-06-22 09:32 | RAD REPORT ---
EXAM DESCRIPTION: US - Extrem Venous W Compress [place] - 06/22/2022 12:29 am CLINICAL HISTORY: 52 years, Female, SWELLING COMPARISON: None. FINDINGS: Grayscale imaging as well as spectral and color Doppler interrogation of the deep venous s ystem of bilateral lower extremity was performed with visualization from the common femoral veins to the popliteal veins and posterior tibial vein. There is normal compressibility, augmentation and flow with no visualized thrombus. No focal fluid collection is identified. IMPRESSION: No bilateral lower extremity DVT. Electronically signed by: James Herrera DO 06/22/2022 12:43 AM CDT Due to temporary technical issues with the PACS/Fluency reporting system, reports are being signed by the in house radiologists without review as a courtesy to insure prompt reporting. The interpreting radiologist is fully responsible for the content of the report.
--- NOTE | 2022-06-22 11:46 | RAD REPORT ---
EXAM DESCRIPTION: CT - Chest For Pe Angio - 06/22/2022 8:17 am CLINICAL HISTORY: 52 years, Female, Palpitations COMPARISON: 07/04/2015. TECHNIQUE: Multiple transaxial tomograms of the chest were obtained from the lung apices through the lung bases utilizing 2 mm slice thickness at 2 mm interval reconstruction after the administration o f large bolus of IV contrast for complete opacification of the pulmonary arteries. Subsequent 3-D maximum intensity projection images were generated in the coronal and sagittal plane f or review. This exam was performed according to our departmental dose-optimization protocol, which includes auto mated exposure control, adjustment of the mA and/or kV according to patient size and/or use of iterat edgar reconstruction technique. FINDINGS: The lungs parenchyma demonstrate to be clear. No masses, nodules and/or consolidations are identified. Mild elevation of the right hemidiaphragm. The trachea mainstem bronchus demonstrate to be normal. There is no significant pericardial or pleura l effusions. The thoracic aorta demonstrate to be within normal limits. There is no evidence for aneurysm/or signi ficant dissection. The heart is normal in size. No evidence for right ventricular strain. There is no significant mediastinal and/or hilar lymphadenopathy. The axillary regions demonstrate to be clear. Pulmonary arteries demonstrate to be normal, no intraluminal defect are seen that would suggest pulmo nary embolus. The bone windows demonstrate no significant skeletal lesions. Visualized portions of the upper abdomen demonstrate a mid pole right renal calculus. IMPRESSION: No evidence for pulmonary embolus and/or thoracic aortic dissection. Right nephrolithiasis. Electronically signed by: Meño Lizama MD 06/22/2022 2:02 AM CDT Due to temporary technical issues with the PACS/Fluency reporting system, reports are being signed by the in house radiologists without review as a courtesy to insure prompt reporting. The interpreting radiologist is fully responsible for the content of the report.
--- NOTE | 2022-06-22 13:35 | EKG ---
Test Date: 2022-06-21 Test Time: 23:42:44 Pest Control Service Technician: MARCO MEASUREMENT RESULTS: Intervals: Rate: 125 VA: 146 QRSD: 80 QT: 302 QTc: 435 [place]: P: 60 VA: 146 QRS: 19 T: -60 INTERPRETIVE STATEMENTS: Sinus tachycardia ST & T wave abnormality, consider anterior ischemia Abnormal ECG Compared to ECG 07/04/2015 20:34:52 ST (T wave) deviation now present Possible ischemia now present Sinus rhythm no longer present Sinus arrhythmia no longer present T-wave abnormality no longer present Prolonged QT interval no longer present Electronically Signed On 06-22-22 13:34:16 CDT by Danial Joiner
[2022-06-23 05:15] VITALS: TEMP 98.8
[2022-06-23 05:27] VITALS: BP 154/91
[2022-06-23 05:55] VITALS: O2SAT 98
== END 2022-06-22 03:00 | disposition home or self-care (01) ==
LOC: ER 23:07
DX: R00.2 Palpitations (principal); I11.9 Hypertensive heart disease without heart failure
CPT/HCPCS: 93005; 85025; 80048; 36415; 85379; 84484; 71275; 71045; 93970; 96372; 96374; 99284; Q9967